=== PATIENT | female | born 1990 | race Caucasian/White ===

== ENCOUNTER 2016-11-05 13:40 | Inpatient (IN) | payer OTHER ==
[2016-11-05 16:04] VITALS: BMI 26.6
--- NOTE | 2016-11-05 17:29 | HP ---
COWS - Scale Resting Pulse: 1= DC 81-100 Sweatin= Chills/Flushing Restless Observation: 5= Unable to Sit Still Pupil Size: 1= Pupils >than Normal Bone or Joint Aches: 2= Severe Diffuse Aches Runny Nose/ Eye Tearin= Runny Nose/Eyes GI Upset > 30mins: 2= Nausea/Diarrhea Tremor Observation: 2= Slight Tremor Visible Yawning Observation: 1= 1-2x During Session Anxiety or Irritability: 2=Irritable/Anxious Goose Flesh Skin: 3=Piloerection COWS Score: 22 CIWA Score - CIWA Score Nausea/Vomitin-Mild Nausea/No Vomiting Muscle Tremors: 3 Anxiety: 3 Agitation: 4-Moderately Restless Paroxysmal Sweats: 1-Minimal Palms Moist Orientation: 0-Oriented Tacttile Disturbances: 0-None Auditory Disturbances: 0-None Visual Disturbances: 0-None Headache: 0-None Present (PATIENT DOES NOT DRINK ALCOHOL DAILY, AVERAGE TWICE A MONTH) CIWA-Ar Total Score: 12 Admission [facility] - HPI Chief Complaint: WITHDRAWAL SX Allergies/Adverse Reactions: Allergies Allergy/AdvReac Type Severity Reaction Status Date / Time No Known Allergies Allergy Verified 11/05/16 16:54 History of Present Illness: 26 YEARS OLD FEMALE WITH LONG HISTORY OF OPIATE, NICOTINE DEPENDENCE, HAS CELLULITIS ON RIGHT DORSAL OF HAND AND LEFT LATERAL 5TH FINGER OF THE HAND, HAS ANXIETY NO TREATMENT IS ADMITTED TO DETOX Exam Limitations: No Limitations - Ebola screening Have you traveled outside of the country in the last 21 days: No Have you had contact with anyone from an Ebola affected area: No Have you been sick,other than usual withdrawal symptoms: No Do you have a fever: No - Review of Systems Constitutional: Chills, Changes in sleep, Weight Stable EENT: reports: No Symptoms Reported Respiratory: reports: No Symptoms reported Cardiac: reports: Palpitations GI: reports: Diarrhea, Nausea, Poor Fluid Intake, Indigestion, Abdominal cramping : reports: No Symptoms Reported Musculoskeletal: reports: Back Pain, Joint Pain, Muscle Pain, Neck Pain Integumentary: reports: Change in Color (HANDS) Neuro: reports: Tremors Endocrine: reports: No Symptoms Reported Hematology: reports: No Symptoms Reported Psychiatric: reports: Judgement Intact, Orientated x3, Anxious Other Systems: Reviewed and Negative Patient History - Patient Medical History Hx Anemia: No Hx Asthma: No Hx Chronic Obstructive Pulmonary Disease (COPD): No Hx Cancer: No Hx Cardiac Disorders: No Hx Congestive Heart Failure: No Hx Hypertension: No Hx Hypercholesterolemia: No Hx Pacemaker: No HX Cerebrovascular Accident: No Hx Seizures: No Hx Dementia: No Hx Diabetes: No Hx Gastrointestinal Disorders: No Hx Liver Disease: No Hx Genitourinary Disorders: No Hx Sexually Transmitted Disorders: No Hx Renal Disease (ESRD): No Hx Thyroid Disease: No Hx Human Immunodeficiency Virus (HIV): No Hx Hepatitis C: No Hx Depression: Yes Hx Suicide Attempt: No Hx Bipolar Disorder: No Hx Schizophrenia: No - Patient Surgical History Past Surgical History: No Hx Neurologic Surgery: No Hx Cataract Extraction: No Hx Cardiac Surgery: No Hx Lung Surgery: No Hx Breast Surgery: No Hx Breast Biopsy: No Hx Abdominal Surgery: No Hx Appendectomy: No Hx Cholecystectomy: No Hx Genitourinary Surgery: No Hx Section: No Hx Orthopedic Surgery: No Hx Hysterectomy: No Anesthesia Reaction: No - PPD History Previous Implant?: Yes Documented Results: Negative w/proof Implanted On Prior [facility] Admission?: Yes Date: 03/22/16 Results: 0 MM PPD to be Administered?: No - Reproductive History Patient is a Female of Child Bearing Age (11 -55 yrs old): Yes Last Menstrual Period: 10/05/16 Patient : No - Smoking Cessation Smoking history: Current every day smoker Have you smoked in the past 12 months: Yes Aproximately how many cigarettes per day: 4 Cigars Per Day: 0 Hx Chewing Tobacco Use: No Initiated information on smoking cessation: Yes 'Breaking Loose' booklet given: 11/05/16 - Substance & Tx. History Hx Alcohol Use: Yes Hx Substance Use: Yes Substance Use Type: Alcohol, Cocaine, Opiates Hx Substance Use Treatment: Yes - Substances Abused Heroin Route: Injection Frequency: Daily Amount used: 10 BAGS Age of first use: 25 Date of Last Use: 11/04/16 Oxycontin Route: Oral Frequency: 1-2 times per week Amount used: 2-3 30MG PILLS Age of first use: 20 Date of Last Use: 11/04/16 Cocaine Route: Inhalation Frequency: 1-3 times last 30 days Amount used: 1 GRAM Age of first use: 18 Date of Last Use: 11/04/16 Alcohol Route: Oral Frequency: 1-2 times per week Amount used: 2 GLASSES OF WINE Age of first use: 16 Date of Last Use: 11/05/16 Family Disease History - Family Disease History Family Disease History: Diabetes: Father (HTN), Heart Disease: Father Admission Physical Exam [facility] - Vital Signs Vital Signs: Vital Signs - 24 hr 11/05/16 15:55 Temperature 96.4 F L Pulse Rate 99 H Respiratory 20 Rate Blood Pressure 135/75 - Physical General Appearance: Yes: Nourished, Appropriately Dressed, Moderate Distress, Tremorous, Irritable, Sweating, Anxious HEENTM: Yes: Hearing grossly Normal, Normal ENT Inspection, Normocephalic, Normal Voice Respiratory: Yes: Chest Non-Tender, Lungs Clear, Normal Breath Sounds, No Respiratory Distress, No Accessory Muscle Use Neck: Yes: Supple, Trachea in good position Breast: Yes: Breasts Symetrical Cardiology: Yes: Regular Rhythm, S1, S2, Tachycardia Abdominal: Yes: Non Tender, Soft, Increased Bowel Sounds Genitourinary: Yes: Within Normal Limits Back: Yes: Normal Inspection Musculoskeletal: Yes: full range of Motion, Gait Steady, Joint swelling (RIGHT AND LEFT HANDS) Extremities: Yes: Normal Range of Motion, Non-Tender, Tremors, Swelling (BOTH HANDS) Neurological: Yes: Fully Oriented, Alert, Motor Strength 5/5, Normal Response, Depressed Affect Integumentary: Yes: Warm, Erythema (BOTH HANDS), Moist Lymphatic: Yes: Within Normal Limits - Diagnostic (1) Nicotine dependence Current Visit: Yes Status: Acute Qualifiers: Nicotine product type: cigarettes Substance use status: in withdrawal Qualified Code(s): F17.213 - Nicotine dependence, cigarettes, with withdrawal (2) Opioid dependence with withdrawal Current Visit: Yes Status: Acute (3) Cellulitis and abscess of hand Current Visit: Yes Status: Acute Comment: KEFLEX (4) Anxiety Current Visit: Yes Status: Suspected Cleared for Admission [facility] - Detox or Rehab [facility] Level of Care: Medically Managed Detox Regimen/Protocol: Methadone [facility] Breath Alcohol Content Breath Alcohol Content: 0.030 Urine Pregancy Test - Result Urine Test Results: Negative- NO Line Present Urine Drug Screen - Results Drug Screen Negative: No Urine Drug Screen Results: KEVIN-Cocaine, OPI-Opiates, OXY-Oxycodone
[2016-11-05] MEDS ORDERED: MAG HYDROX/AL HYDROX/SIMETH 30 ML UNIT-DOSE CUP PO PRN (17:32)
[2016-11-05] MEDS ORDERED: NICOTINE 14 MG/24 HOURS TOPICAL PATCH TD PRN (17:32)
[2016-11-05] MEDS ORDERED: LOPERAMIDE HCL 2 MG CAPSULE PO PRN (17:32)
[2016-11-05] MEDS ORDERED: guaiFENesin/D-METHORPHAN HB 10 ML UNIT-DOSE CUPS PO PRN (17:32)
[2016-11-05] MEDS ORDERED: IBUPROFEN 400 MG TABLET (FP) PO PRN (17:32)
[2016-11-05] MEDS ORDERED: MAGNESIUM CITRATE 300 ML BOTTLE PO PRN (17:32)
[2016-11-05] MEDS ORDERED: MAGNESIUM HYDROX 2400MG/30ML ORAL SUSPENSION 30 ML CUP PO PRN (17:32)
[2016-11-05] MEDS ORDERED: ACETAMINOPHEN 325 MG TABLET (FP) PO PRN (17:32)
[2016-11-05] MEDS ORDERED: NICOTINE POLACRILEX 2 MG GUM BUC PRN (17:32)
[2016-11-05] MEDS ORDERED: MENTHOL/PHENOL 1 EACH UD MM PRN (17:32)
[2016-11-05] MEDS ORDERED: P-EPHED 60MG/TRIPROLIDI 2.5MG TABLET PO PRN (17:32)
[2016-11-05] MEDS ORDERED: METHADONE HCL 10 MG TABLET (FOR DETOX USE ONLY) PO ONE ×2 (18:15→23:00)
[2016-11-05] MEDS: diazePAM 5 MG TABLET PO PRN (19:52)
[2016-11-05] MEDS: CEPHALEXIN MONOHYDRATE 500 MG CAPSULE (UD) PO SCH ×2 (19:53→23:07)
[2016-11-05] MEDS: THIAMINE HCL 100 MG TABLET (FP) PO SCH (22:26)
[2016-11-05 23:18] LABS: URINE APPEARANCE CLOUDY; URINE BILIRUBIN NEGATIVE (NEGATIVE); URINE BLOOD NEGATIVE (NEGATIVE); URINE COLOR YELLOW; URINE GLUCOSE (UA) NEGATIVE (NEGATIVE); URINE KETONE NEGATIVE (NEGATIVE); URINE NITRITE NEGATIVE (NEGATIVE); URINE PROTEIN NEGATIVE (NEGATIVE); URINE UROBILINOGEN NEGATIVE E.U./dl (0.2-1.0)
[2016-11-05 23:20] LABS: URINE LEUK ESTERASE 1+ (NEGATIVE)
[2016-11-05 23:23] LABS: URINE BACTERIA RARE /hpf (NONE SEEN); URINE MUCUS RARE; URINE RBC 5 /hpf (0-3); URINE WBC 11 /hpf (3-5)
[2016-11-06] MEDS: CEPHALEXIN MONOHYDRATE 500 MG CAPSULE (UD) PO SCH ×3 (06:10→17:32)
[2016-11-06] MEDS: diazePAM 5 MG TABLET PO PRN ×3 (06:10→22:10)
[2016-11-06] MEDS ORDERED: METHADONE HCL 10 MG TABLET (FOR DETOX USE ONLY) PO ONE (10:00)
[2016-11-06] MEDS: PRENATAL VITAMINS W/ FOLIC ACID TABLET (FP) PO SCH (10:16)
[2016-11-06 10:21] LABS: ALBUMIN 4.1 g/dl (3.4-5.0); ANION GAP 10 (8-16); BILIRUBIN,TOTAL 1.1 mg/dL (0.2-1.0); CALCIUM 9.5 mg/dL (8.5-10.1); CO2 26 mmol/L (21-32); CREATININE 0.8 mg/dL (0.55-1.02); GLUCOSE,RANDOM 85 mg/dL (74-106); SGOT/AST 18 U/L (15-37); SGPT/ALT 21 U/L (12-78); TOT PROT 7.7 g/dl (6.4-8.2)
[2016-11-06 10:22] LABS: ALK PHOS 103 U/L (45-117)
[2016-11-06 10:27] LABS: MCHC 31.5 g/dl (32.0-36.0); MEAN CELL VOLUME 56.8 fl (80-96); MEAN PLT VOLUME 9.7 fl (7.5-11.1); PLATELET COUNT 265 K/MM3 (134-434); RDW 19.7 % (11.6-15.6); WHITE BLOOD COUNT 9.1 K/mm3 (4.0-10.0)
--- NOTE | 2016-11-06 10:28 | PN ---
[facility] CIWA - CIWA Score Nausea/Vomitin Muscle Tremors: 3 Anxiety: 2 Agitation: 3 Paroxysmal Sweats: 1-Minimal Palms Moist Orientation: 0-Oriented Tacttile Disturbances: 1-Very Mild Itch/Numbness Auditory Disturbances: 1-Very Mild Visual Disturbances: 1-Very Mild Sensitivity Headache: 2-Mild CIWA-Ar Total Score: 17 [facility] COWS - Scale Resting Pulse: 0= ID 80 or Below Sweatin=Flushed/Facial Moisture Restless Observation: 3= Extraneous Movement Pupil Size: 1= Pupils >than Normal Bone or Joint Aches: 2= Severe Diffuse Aches Runny Nose/ Eye Tearin= Runny Nose/Eyes GI Upset > 30mins: 2= Nausea/Diarrhea Tremor Observation of Outstretched Hands: 2= Slight Tremor Visible Yawning Observation: 1= 1-2x During Session Anxiety or Irritability: 2=Irritable/Anxious Goose Flesh Skin: 0=Smooth Skin COWS Score: 17 [facility] Progress Note (SOAP) Subjective: ALERT,IRRITABLE,ANXIOUS,INTERRUPTED SLEEP,TREMOR,PAIN IN THE BODY AND BACK Objective: 11/06/16 10:27 Vital Signs Temperature 99.3 F 11/06/16 10:20 Pulse Rate 89 11/06/16 10:20 Respiratory Rate 20 11/06/16 10:20 Blood Pressure 120/73 11/06/16 10:20 O2 Sat by Pulse Oximetry (%) EKG NSR Laboratory Results - last 24 hr 11/05/16 11/06/16 23:00 06:00 Sodium 138 Potassium 4.5 D Chloride 102 Carbon Dioxide 26 Anion Gap 10 BUN 11 Creatinine 0.8 Creat Clearance w eGFR > 60 Random Glucose 85 Calcium 9.5 Total Bilirubin 1.1 H AST 18 D ALT 21 Alkaline Phosphatase 103 D Total Protein 7.7 Albumin 4.1 Urine Color Yellow Urine Appearance Cloudy Urine pH 5.0 Ur Specific [place] 1.017 Urine Protein Negative Urine Glucose (UA) Negative Urine Ketones Negative Urine Blood Negative Urine Nitrite Negative Urine Bilirubin Negative Urine Urobilinogen Negative Ur Leukocyte Esterase 1+ H Urine RBC 5 Urine WBC 11 Ur Epithelial Cells Many Urine Bacteria Rare Urine Mucus Rare LABS PENDING Assessment: 11/06/16 10:28 WITHDRAWAL SYMPTOM Plan: CONTINUE DETOX
[2016-11-06 10:32] LABS: MCH 17.9 pg (25.7-33.7)
[2016-11-06 11:04] LABS: HIV 1 & 2 AB PRELIMINARY POSITIVE; HIV 1 AGp24 NEGATIVE
[2016-11-06 12:46] LABS: ANISOCYTOSIS 3+; FRAGMENTED CELL 1+; HYPOCHROMIA 4+; MICROCYTOSIS 3+; POIKILOCYTOSIS 4+
[2016-11-06 12:49] LABS: OVALOCYTES 2+; TARGET CELLS 3+; TEAR DROP CELLS 2+
--- NOTE | 2016-11-06 14:27 | CONSULT ---
[facility] Psychiatric Consult - Data Date of interview: 11/06/16 Admission source: [facility] Identifying data: Readmission to [facility] [place] this 26 y/o female seeking detox treatment on for opioid,alcohol and cocaine dependence.Patient is single without children,domiciled,unemployed and supported on [facility] benefits. Substance Abuse History: - Smoking Cessation. Smoking history: Current every day smoker. Have you smoked in the past 12 months: Yes. Aproximately how many cigarettes per day: 4. Cigars Per Day: 0. Hx Chewing Tobacco Use: No. Initiated information on smoking cessation: Yes. 'Breaking Loose' booklet given : 11/05/16. - Substance & Tx. History. Hx Alcohol Use: Yes. Hx Substance Use : Yes. Substance Use Type: Alcohol, Cocaine, Opiates. Hx Substance Use Treatment: Yes. - Substances Abused. Heroin. Route: Injection. Frequency : Daily. Amount used: 10 BAGS. Age of first use: 25. Date of Last Use: . Oxycontin. Route: Oral. Frequency: 1-2 times per week. Amount used: 2 -3 30MG PILLS. Age of first use: 20. Date of Last Use: 11/04/16. Cocaine. Route: Inhalation. Frequency: 1-3 times last 30 days. Amount used: 1 GRAM. Age of first use: 18. Date of Last Use: 11/04/16. Alcohol. Route: Oral. Frequency: 1-2 times per week. Amount used: 2 GLASSES OF WINE. Age of first use: 16. Date of Last Use: 11/05/16. Confirmed by the patient in this interview. Medical History: Cellulitis and abcess of right hand.Currently on antibiotherapy.Otherwise the patient endorses good general health. Psychiatric History: Patient denies history of psychiatric hospitalizations.Ms Sotomayor states that she was seeing a private psychiatrist (in [place]) for medication management:lexapro 10 mg po daily + adderall 30 mg po bid.Diagnosed with ADHD,MDD and Anxiety Disorder.Ms Sotomayor admits to non-adherence to OPD care.No history of suicide attempts. Physical/Sexual Abuse/Trauma History: Patient declines to provide information on this particular topic. Additional Comment: Urine Drug Screen Results: KEVIN-Cocaine, OPI-Opiates, OXY- Oxycodone.Noted. Mental Status Exam - Mental Status Exam Alert and Oriented to: Time, Place, Person Cognitive Function: Good Patient Appearance: Well Groomed Mood: Nervous, Anxious, Apprehensive Affect: Mood Congruent Patient Behavior: Appropriate, Cooperative Speech Pattern: Clear, Appropriate Voice Loudness: Normal Thought Process: Goal Oriented Thought Disorder: Not Present Hallucinations: Denies Suicidal Ideation: Denies Homicidal Ideation: Denies Insight/Judgement: Poor Sleep: Poorly, Difficulty falling asleep Appetite: Good Muscle strength/Tone: Normal Gait/Station: Normal Psychiatric Findings - Problem List ([place] 1, 2,3) (1) Nicotine dependence Current Visit: Yes Status: Acute Qualifiers: Nicotine product type: cigarettes Substance use status: in withdrawal Qualified Code(s): F17.213 - Nicotine dependence, cigarettes, with withdrawal (2) Opioid dependence with withdrawal Current Visit: Yes Status: Acute (3) Cocaine dependence Current Visit: Yes Status: Acute (4) Alcohol abuse Current Visit: Yes Status: Acute (5) ADHD (attention deficit hyperactivity disorder) Current Visit: Yes Status: Chronic (6) Substance induced mood disorder Current Visit: Yes Status: Acute (7) Cellulitis and abscess of hand Current Visit: Yes Status: Acute Comment: KEFLEX - Initial Treatment Plan Initial Treatment Plan: Psychoeducation.Detoxification.Medications : ritalin 5 mg po bid @ 8 am + 1 pm.Side effects/benefits discussed with patient.Patient declines to resume lexapro but she agrees to take ritalin as an alternate to Adderall.Observation.
--- NOTE | 2016-11-06 17:43 | EKG ---
Test Reason : Blood Pressure : / mmHG Vent. Rate : 085 BPM Atrial Rate : 085 BPM P-R Int : 142 ms QRS Dur : 068 ms QT Int : 376 ms P-R-T Axes : 049 003 027 degrees QTc Int : 447 ms NORMAL SINUS RHYTHM POSSIBLE LEFT ATRIAL ENLARGEMENT BORDERLINE ECG NO PREVIOUS ECGS AVAILABLE Confirmed by BREANNA GILBERT MD ([id number]) on 11/06/2016 5:43:28 PM Referred By: Confirmed By:BREANNA GILBERT MD
[2016-11-06] MEDS: THIAMINE HCL 100 MG TABLET (FP) PO SCH (22:10)
[2016-11-06] MEDS: diphenhydrAMINE HCL 50 MG CAPSULE PO PRN (22:11)
[2016-11-07] MEDS: CEPHALEXIN MONOHYDRATE 500 MG CAPSULE (UD) PO SCH ×6 (05:30→23:02)
[2016-11-07] MEDS: diazePAM 5 MG TABLET PO PRN ×4 (05:31→22:18)
[2016-11-07] MEDS ORDERED: METHYLPHENIDATE HCL 5 MG TABLET PO SCH (08:00)
[2016-11-07] MEDS: METHYLPHENIDATE HCL 5 MG TABLET PO SCH ×2 (08:25→13:02)
[2016-11-07] MEDS ORDERED: METHADONE HCL 5 MG TABLET (FOR DETOX USE ONLY) PO ONE (10:00)
--- NOTE | 2016-11-07 10:09 | PN ---
[facility] CIWA - CIWA Score Nausea/Vomitin Muscle Tremors: 3 Anxiety: 3 Agitation: 2 Paroxysmal Sweats: 1-Minimal Palms Moist Orientation: 0-Oriented Tacttile Disturbances: 1-Very Mild Itch/Numbness Auditory Disturbances: 1-Very Mild Visual Disturbances: 1-Very Mild Sensitivity Headache: 2-Mild CIWA-Ar Total Score: 17 [facility] COWS - Scale Resting Pulse: 0= CO 80 or Below Sweatin= Chills/Flushing Restless Observation: 3= Extraneous Movement Pupil Size: 1= Pupils >than Normal Bone or Joint Aches: 2= Severe Diffuse Aches Runny Nose/ Eye Tearin= Runny Nose/Eyes GI Upset > 30mins: 2= Nausea/Diarrhea Tremor Observation of Outstretched Hands: 2= Slight Tremor Visible Yawning Observation: 1= 1-2x During Session Anxiety or Irritability: 2=Irritable/Anxious Goose Flesh Skin: 0=Smooth Skin COWS Score: 16 S Progress Note (SOAP) Subjective: ALERT,IRRITABLE,ANXIOUS,PAIN IN THE BODY AND BACK,TREMOR,INTERRUPTED SLEEP Objective: 11/07/16 10:02 Vital Signs Temperature 98.6 F 11/07/16 09:46 Pulse Rate 86 11/07/16 09:46 Respiratory Rate 16 11/07/16 09:46 Blood Pressure 117/69 11/07/16 09:46 O2 Sat by Pulse Oximetry (%) Laboratory Last Values WBC 9.1 K/mm3 (4.0-10.0) 11/06/16 06:00 RBC 6.39 M/mm3 (3.60-5.2) H 11/06/16 06:00 Hgb 11.4 GM/dL (10.7-15.3) 11/06/16 06:00 Hct 36.2 % (32.4-45.2) 11/06/16 06:00 MCV 56.8 fl (80-96) L 11/06/16 06:00 MCHC 31.5 g/dl (32.0-36.0) L 11/06/16 06:00 RDW 19.7 % (11.6-15.6) H D 11/06/16 06:00 Plt Count 265 K/MM3 (134-434) 11/06/16 06:00 MPV 9.7 fl (7.5-11.1) 11/06/16 06:00 Hypochromic-Microcytic 4+ 11/06/16 06:00 Poikilocytosis 4+ 11/06/16 06:00 Anisocytosis 3+ 11/06/16 06:00 Microcytosis 3+ 11/06/16 06:00 Macrocytosis 1+ 11/06/16 06:00 Target Cells 3+ 11/06/16 06:00 Tear Drop Cells 2+ 11/06/16 06:00 Ovalocytes 2+ 11/06/16 06:00 Fragmented RBCs 1+ 11/06/16 06:00 Morphology Comment Slide scanned 11/06/16 06:00 Sodium 138 mmol/L (136-145) 11/06/16 06:00 Potassium 4.5 mmol/L (3.5-5.1) D 11/06/16 06:00 Chloride 102 mmol/L (98-107) 11/06/16 06:00 Carbon Dioxide 26 mmol/L (21-32) 11/06/16 06:00 Anion Gap 10 (8-16) 11/06/16 06:00 BUN 11 mg/dL (7-18) 11/06/16 06:00 Creatinine 0.8 mg/dL (0.55-1.02) 11/06/16 06:00 Creat Clearance w eGFR > 60 (>60) 11/06/16 06:00 Random Glucose 85 mg/dL (74-106) 11/06/16 06:00 Calcium 9.5 mg/dL (8.5-10.1) 11/06/16 06:00 Total Bilirubin 1.1 mg/dL (0.2-1.0) H 11/06/16 06:00 AST 18 U/L (15-37) D 11/06/16 06:00 ALT 21 U/L (12-78) 11/06/16 06:00 Alkaline Phosphatase 103 U/L (45-117) D 11/06/16 06:00 Total Protein 7.7 g/dl (6.4-8.2) 11/06/16 06:00 Albumin 4.1 g/dl (3.4-5.0) 11/06/16 06:00 Urine Color Yellow 11/05/16 23:00 Urine Appearance Cloudy 11/05/16 23:00 Urine pH 5.0 (5.0-8.0) 11/05/16 23:00 Ur Specific [place] 1.017 (1.001-1.035) 11/05/16 23:00 Urine Protein Negative (NEGATIVE) 11/05/16 23:00 Urine Glucose (UA) Negative (NEGATIVE) 11/05/16 23:00 Urine Ketones Negative (NEGATIVE) 11/05/16 23:00 Urine Blood Negative (NEGATIVE) 11/05/16 23:00 Urine Nitrite Negative (NEGATIVE) 11/05/16 23:00 Urine Bilirubin Negative (NEGATIVE) 11/05/16 23:00 Urine Urobilinogen Negative E.U./dl (0.2-1.0) 11/05/16 23:00 Ur Leukocyte Esterase 1+ (NEGATIVE) H 11/05/16 23:00 Urine RBC 5 /hpf (0-3) 11/05/16 23:00 Urine WBC 11 /hpf (3-5) 11/05/16 23:00 Ur Epithelial Cells Many /hpf (FEW) 11/05/16 23:00 Urine Bacteria Rare /hpf (NONE SEEN) 11/05/16 23:00 Urine Mucus Rare 11/05/16 23:00 HIV 1&2 Antibody Screen Preliminary positive 11/05/16 06:00 HIV P24 Antigen Negative 11/05/16 06:00 HAS BEEN ADMITTED 04/14 WAS TOLD TO HAVE PRELIMINARY REPORT HIV 1 ANS 2 ANTIBODY SCREEN SCREEN POSITIVEBUT CONFIRMATION TEST NEGATIVE Assessment: 11/07/16 10:09 WITHDRAWAL SYMPTOM Plan: CONTINUE DETOX
[2016-11-07] MEDS: PRENATAL VITAMINS W/ FOLIC ACID TABLET (FP) PO SCH (10:19)
[2016-11-07] MEDS: THIAMINE HCL 100 MG TABLET (FP) PO SCH (22:18)
[2016-11-07] MEDS: diphenhydrAMINE HCL 50 MG CAPSULE PO PRN (22:19)
[2016-11-08] MEDS: diazePAM 5 MG TABLET PO PRN ×3 (05:48→14:50)
[2016-11-08] MEDS: CEPHALEXIN MONOHYDRATE 500 MG CAPSULE (UD) PO SCH ×4 (07:07→23:03)
[2016-11-08] MEDS: METHYLPHENIDATE HCL 5 MG TABLET PO SCH ×2 (07:07→14:03)
[2016-11-08] MEDS ORDERED: METHADONE HCL 5 MG TABLET (FOR DETOX USE ONLY) PO ONE (10:00)
[2016-11-08] MEDS: PRENATAL VITAMINS W/ FOLIC ACID TABLET (FP) PO SCH (10:32)
--- NOTE | 2016-11-08 12:26 | PN ---
[facility] Progress Note (SOAP) Subjective: tired sweats anxiety interrupted sleep Objective: 11/08/16 12:25 Vital Signs Temperature 97.2 F L 11/08/16 09:56 Pulse Rate 72 11/08/16 09:56 Respiratory Rate 18 11/08/16 09:56 Blood Pressure 117/63 11/08/16 09:56 O2 Sat by Pulse Oximetry (%) awake/alert ambulating no acute distress Assessment: 11/08/16 12:25 withdrawal sx Plan: continue detox increase fluids
[2016-11-08] MEDS ORDERED: hydrOXYzine PAMOATE 50 MG CAPSULE (FP) PO PRN (15:30)
[2016-11-08] MEDS: THIAMINE HCL 100 MG TABLET (FP) PO SCH (22:25)
[2016-11-08] MEDS: diphenhydrAMINE HCL 50 MG CAPSULE PO PRN (22:25)
[2016-11-09] MEDS: CEPHALEXIN MONOHYDRATE 500 MG CAPSULE (UD) PO SCH (05:45)
[2016-11-09] MEDS: METHYLPHENIDATE HCL 5 MG TABLET PO SCH (07:55)
[2016-11-09] MEDS ORDERED: METHADONE HCL 10 MG TABLET (FOR DETOX USE ONLY) PO ONE (10:00)
--- NOTE | 2016-11-09 10:13 | PN ---
[facility] Progress Note (SOAP) Subjective: ALERT,NO COMPLAINT Objective: 11/09/16 10:10 Vital Signs Temperature 98.1 F 11/09/16 06:23 Pulse Rate 62 11/09/16 06:23 Respiratory Rate 16 11/09/16 06:23 Blood Pressure 100/64 11/09/16 06:23 O2 Sat by Pulse Oximetry (%) Laboratory Last Values WBC 9.1 K/mm3 (4.0-10.0) 11/06/16 06:00 RBC 6.39 M/mm3 (3.60-5.2) H 11/06/16 06:00 Hgb 11.4 GM/dL (10.7-15.3) 11/06/16 06:00 Hct 36.2 % (32.4-45.2) 11/06/16 06:00 MCV 56.8 fl (80-96) L 11/06/16 06:00 MCHC 31.5 g/dl (32.0-36.0) L 11/06/16 06:00 RDW 19.7 % (11.6-15.6) H D 11/06/16 06:00 Plt Count 265 K/MM3 (134-434) 11/06/16 06:00 MPV 9.7 fl (7.5-11.1) 11/06/16 06:00 Hypochromic-Microcytic 4+ 11/06/16 06:00 Poikilocytosis 4+ 11/06/16 06:00 Anisocytosis 3+ 11/06/16 06:00 Microcytosis 3+ 11/06/16 06:00 Macrocytosis 1+ 11/06/16 06:00 Target Cells 3+ 11/06/16 06:00 Tear Drop Cells 2+ 11/06/16 06:00 Ovalocytes 2+ 11/06/16 06:00 Fragmented RBCs 1+ 11/06/16 06:00 Morphology Comment Slide scanned 11/06/16 06:00 Sodium 138 mmol/L (136-145) 11/06/16 06:00 Potassium 4.5 mmol/L (3.5-5.1) D 11/06/16 06:00 Chloride 102 mmol/L (98-107) 11/06/16 06:00 Carbon Dioxide 26 mmol/L (21-32) 11/06/16 06:00 Anion Gap 10 (8-16) 11/06/16 06:00 BUN 11 mg/dL (7-18) 11/06/16 06:00 Creatinine 0.8 mg/dL (0.55-1.02) 11/06/16 06:00 Creat Clearance w eGFR > 60 (>60) 11/06/16 06:00 Random Glucose 85 mg/dL (74-106) 11/06/16 06:00 Calcium 9.5 mg/dL (8.5-10.1) 11/06/16 06:00 Total Bilirubin 1.1 mg/dL (0.2-1.0) H 11/06/16 06:00 AST 18 U/L (15-37) D 11/06/16 06:00 ALT 21 U/L (12-78) 11/06/16 06:00 Alkaline Phosphatase 103 U/L (45-117) D 11/06/16 06:00 Total Protein 7.7 g/dl (6.4-8.2) 11/06/16 06:00 Albumin 4.1 g/dl (3.4-5.0) 11/06/16 06:00 Urine Color Yellow 11/05/16 23:00 Urine Appearance Cloudy 11/05/16 23:00 Urine pH 5.0 (5.0-8.0) 11/05/16 23:00 Ur Specific [place] 1.017 (1.001-1.035) 11/05/16 23:00 Urine Protein Negative (NEGATIVE) 11/05/16 23:00 Urine Glucose (UA) Negative (NEGATIVE) 11/05/16 23:00 Urine Ketones Negative (NEGATIVE) 11/05/16 23:00 Urine Blood Negative (NEGATIVE) 11/05/16 23:00 Urine Nitrite Negative (NEGATIVE) 11/05/16 23:00 Urine Bilirubin Negative (NEGATIVE) 11/05/16 23:00 Urine Urobilinogen Negative E.U./dl (0.2-1.0) 11/05/16 23:00 Ur Leukocyte Esterase 1+ (NEGATIVE) H 11/05/16 23:00 Urine RBC 5 /hpf (0-3) 11/05/16 23:00 Urine WBC 11 /hpf (3-5) 11/05/16 23:00 Ur Epithelial Cells Many /hpf (FEW) 11/05/16 23:00 Urine Bacteria Rare /hpf (NONE SEEN) 11/05/16 23:00 Urine Mucus Rare 11/05/16 23:00 RPR Titer Reactive 1:4 (NONREACTIVE) H 11/06/16 06:00 T.pallidum Ab (MHA) Non reactive (NONREACTIVE) 11/06/16 06:00 HIV-1 Antibody Not Reportable 11/05/16 06:00 HIV-2 Antibody Not Reportable 11/05/16 06:00 HIV 1&2 Ag/Ab, 4th Gen 11/05/16 06:00 HIV Note Not Reportable 11/05/16 06:00 HIV 1&2 Antibody Screen Preliminary positive 11/05/16 06:00 HIV 1&2 Antibody Not Reportable 11/05/16 06:00 HIV 1&2 Ab Differen Com SO[employer]OL[employer] 11/05/16 06:00 HIV P24 Antigen Negative 11/05/16 06:00 SEEN BY [facility]LE[facility] FROM [facility] PATIENT WILL SEE JAVIER HO IN [facility] FOR FOLLOW UP CARE Assessment: 11/09/16 10:12 STABLE FOR DISCHARGE TODAY Plan: DISCHARGE IN GOOD CONDITION,FOLLOW UP AFTER CARE PROGRAM ARRANGEMENT AND JAVIER HO FOR FOLLOW UP
--- NOTE | 2016-11-09 10:18 | DS ---
[facility] Detox Discharge Summary Admission Date: 11/05/16 Discharge Date: 11/09/16 - History Present History: Alcohol Dependence, Cocaine Dependence, Opioid Dependence Additional Comments: FOLLOW UP WITH AFTER CARE PROGRAM MARY AND JAVIER HO FOR FOLLOW UP Pertinent Past History: CELLULITIS BOTH HANDS - Physical Exam Results Vital Signs: Vital Signs Temperature 98.1 F 11/09/16 06:23 Pulse Rate 62 11/09/16 06:23 Respiratory Rate 16 11/09/16 06:23 Blood Pressure 100/64 11/09/16 06:23 O2 Sat by Pulse Oximetry (%) Pertinent Admission Physical Exam Findings: WITHDRAWAL SYMPTOM - Treatment Hospital Course: Detox Protocol Followed, Detoxed Safely, Responded well, Discharged Condition Good Patient has Accepted a Rehab Referral to: DECLINED - Diagnosis (1) Cellulitis and abscess of hand Current Visit: Yes Status: Acute (2) Cocaine dependence Current Visit: Yes Status: Acute (3) Nicotine dependence Current Visit: Yes Status: Acute Qualifiers: Nicotine product type: cigarettes Substance use status: in withdrawal Qualified Code(s): F17.213 - Nicotine dependence, cigarettes, with withdrawal (4) Opioid dependence with withdrawal Current Visit: Yes Status: Acute (5) Substance induced mood disorder Current Visit: Yes Status: Acute (6) ADHD (attention deficit hyperactivity disorder) Current Visit: Yes Status: Chronic - AMA Did Patient Leave Against Medical Advice: No
[2016-11-09 10:21] VITALS: BP 139/58; PULSE 98; TEMP 98.6
[2016-11-09] MEDS: PRENATAL VITAMINS W/ FOLIC ACID TABLET (FP) PO SCH (10:28)
[2016-11-10] MEDS ORDERED: METHADONE HCL 5 MG TABLET (FOR DETOX USE ONLY) PO ONE (06:00)
== END 2016-11-09 11:04 | disposition home or self-care (01) | DRG 897 ==
LOC: YASAS 13:40 → Y6N 18:11
PROVIDERS: ADMIT Internal Medicine; ATTEND Internal Medicine
PROC: HZ2ZZZZ Detoxification Services for Substance Abuse Treatment (ICD-10-PCS; principal; 2016-11-09)
DX: F19.230 Other psychoactive substance dependence with withdrawal, uncomplicated (principal); F14.20 Cocaine dependence, uncomplicated; L03.113 Cellulitis of right upper limb; F11.23 Opioid dependence with withdrawal; F17.213 Nicotine dependence, cigarettes, with withdrawal; F10.10 Alcohol abuse, uncomplicated; F19.24 Other psychoactive substance dependence with psychoactive substance-induced mood disorder; F90.9 Attention-deficit hyperactivity disorder, unspecified type; F41.9 Anxiety disorder, unspecified
CPT/HCPCS: 36415; 80053; 81003; 81015; 85027; 86593; 86780; 87389; 93005; 93010